=== PATIENT | male | born 2000 | race Caucasian/White ===

== ENCOUNTER 2020-02-09 00:58 | Emergency (ER) | payer OTHER ==
[~2020-02-09] VITALS: Ht 180.3 cm; Wt 68.0 kg
[2020-02-09] MEDS ORDERED: ZIPRASIDONE 20 MG INJ IM ONE ×2 (01:12→01:30)
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
--- NOTE | 2020-02-09 01:25 | NUR ---
PT MEDICATED PER MAR FOR AGGITATION, PLACED IN 4PT LOCKING RESTRAINTS AT THIS TIME.
[2020-02-09] MEDS ORDERED: PLEASE ENTER ALLERGIES MC SCH (01:30)
--- NOTE | 2020-02-09 01:37 | NUR ---
PT REFUSES LABS AT THIS TIME
--- NOTE | 2020-02-09 02:09 | NUR ---
PT CONTINUES TO THRASH ON GURNEY AGAINST RESTRAINTS, HAS REMOVED PULSE OX AGAIN. PT ENCOURAGED TO REST AND NOT SHOUT AT STAFF.
--- NOTE | 2020-02-09 02:40 | NUR ---
PT NOW CONSENTS TO LAB DRAW AND IS NO LONGER SHOUTING AT STAFF OR FIGHTING THE RESTRAINTS. PT NOW IN 2PT RESTRAINTS, PROVIDED WATER AND A PILLOW AND WILL WORK TOWARDS NO LONGER REQ ANY RESTRAINTS.
[2020-02-09 02:48] LABS: BASOPHILS % (AUTO) 1 % (0-1); EOSINOPHILS % (AUTO) 0 % (1-7); LYMPHOCYTES % (AUTO) 31 % (22-44); MEAN CORPUSCULAR HEMOGLOBIN 31.1 pg (27.5-34.5); MEAN CORPUSCULAR HGB CONC 35.7 g/dL (33.2-36.2); MEAN PLATELET VOLUME 6.9 fL (7.4-10.4); MONOCYTES % (AUTO) 5 % (2-9); NEUTROPHILS % (AUTO) 63 % (42-75); PLATELET COUNT 252 x10^3/uL (130-400); RED BLOOD COUNT 4.85 x10^6/uL (4.38-5.82); RED CELL DISTRIBUTION WIDTH 12.9 % (9.4-14.8)
[2020-02-09 02:49] LABS: MD NO
[2020-02-09 02:56] LABS: ALANINE AMINOTRANSFERASE 61 U/L (12-78); ALBUMIN 4.1 g/dL (3.4-5.0); ANION GAP 5 mmol/L (5-15); CALCIUM 8.2 mg/dL (8.5-10.1); CHLORIDE 115 mmol/L (98-107)
--- NOTE | 2020-02-09 02:56 | NUR ---
[place] [place]- [phone] [facility] [phone] [facility] [phone]
[2020-02-09 02:58] LABS: ALKALINE PHOSPHATASE 69 U/L (45-117); BILIRUBIN,TOTAL 0.3 mg/dL (0.2-1.0); CREATININE 0.99 mg/dL (0.7-1.3); TOTAL PROTEIN 7.6 g/dL (6.4-8.2)
[2020-02-09 03:03] LABS: SALICYLATE LEVEL < 1.7 mg/dL (2.8-20.0)
--- NOTE | 2020-02-09 03:38 | NUR ---
PT RESTING ON VALDEZ FOSTER, STILL IN 2PT RESTRAINTS
--- NOTE | 2020-02-09 04:24 | NUR ---
PT RESTING ON GURJUAN CARLOS NADN NO NEEDS AT THIS TIME APPEARS CALM AND COOPERATIVE
--- NOTE | 2020-02-09 05:01 | NUR ---
PT RESTING ON VALDEZ FOSTER
--- NOTE | 2020-02-09 06:40 | NUR ---
PT RESTING ON VALDEZ MURPHY NOW IN [place] FOR SAFETY AND FREQUENT CHECKS
[2020-02-09] MEDS ORDERED: NICOTINE 14MG/24 HR PATCH.TD24 TD ONE (07:30)
[2020-02-09] MEDS ORDERED: NICOTINE 14MG/24 HR PATCH.TD24 ONE (07:40)
[2020-02-09 07:42] VITALS: BP 124/81
--- NOTE | 2020-02-09 07:43 | NUR ---
PT RESTING ON BED. REQUESTING TO GO SMOKE. DR ASKED ABOUT NICOTINE PATHC AND DR ORDERED. NICOTINE PATCH APPLIED. PT SAYS HE IS "CHILL".
--- NOTE | 2020-02-09 07:45 | NUR ---
PT SITTING IN BED WITH EYES OPEN. SITTER IN FULL VIEW OF PT. PT MEDICATED PER MAY. DR REQUESTED BREATHALYZER.
--- NOTE | 2020-02-09 08:56 | NUR ---
PT REC'VD DISCHARGE EDUCATION AND INSTRUCTIONS. PT HAD NO FURTHER QUESTIONS. PT AMBULATED TO DC AREA. PT AMBULATED, STEADY GAIT.
--- NOTE | 2020-02-09 08:56 | NUR ---
SUICIDE REASESSMENT COMPLETED AT 0745.
== END 2020-02-09 08:59 | disposition home or self-care (01) ==
LOC: EDBD 00:58 → ED 08:00
DX: G92 Toxic encephalopathy (principal); G31.2 Degeneration of nervous system due to alcohol; F10.129 Alcohol abuse with intoxication, unspecified; F12.10 Cannabis abuse, uncomplicated; F19.151 Other psychoactive substance abuse with psychoactive substance-induced psychotic disorder with hallucinations; F22 Delusional disorders; Y90.9 Presence of alcohol in blood, level not specified
CPT/HCPCS: 36415; 80053; 80307; 85025; 96372; 99285; J3486